=== PATIENT | female | born 1990 ===

== ENCOUNTER 2021-05-28 22:26 | Emergency (ER) | payer MEDICAID ==
[~2021-05-28] VITALS: Ht 157.5 cm; Wt 54.4 kg
--- NOTE | 2021-05-28 22:42 | NUR ---
Chloe c/o fever x 1 week. +body aches/+chills. Patient states she was seen in [facility] 05/14, dx with bronchitis , then once again on 05/22 with dx strep throat. States she is on ABX therapy but symptoms are continuing.
--- NOTE | 2021-05-28 22:58 | NUR ---
MARIKA CHILD at bedside for patient evaluation.
[2021-05-28] MEDS ORDERED: IV NS 1000 ML 1,000 ML IV ONE (23:15)
[2021-05-28] MEDS ORDERED: OXYCODONE/APAP 5-325 MG TABLET PO ONE (23:15)
[2021-05-28] MEDS ORDERED: OXYCODONE/APAP 5-325 MG TABLET ONE (23:23)
[2021-05-28 23:31] LABS: CREATININE 0.8 mg/dL (0.6-1.3); HEMATOCRIT 35.8 % (31.2-41.9); MEAN CORPUSCULAR HEMOGLOBIN 29.3 uug (24.7-32.8); MEAN CORPUSCULAR VOLUME 89.7 fL (75.5-95.3); PLATELET COUNT (AUTO) 321 K/uL (179-408); POTASSIUM 3.7 mmol/L (3.5-5.1)
[2021-05-28 23:47] LABS: BILIRUBIN,DIRECT 0.2 mg/dL (0.0-0.2); BILIRUBIN,TOTAL 0.5 mg/dL (0.2-1.0); TOTAL PROTEIN, SERUM 7.2 g/dL (6.4-8.2)
[2021-05-29 00:10] LABS: *MONOTEST NEGATIVE (NEGATIVE)
[2021-05-29] MEDS ORDERED: OXYC-128 PO (00:30)
[2021-05-29 00:33] VITALS: BP 111/62
--- NOTE | 2021-05-29 00:33 | NUR ---
Patient discharged to home in stable condition. Written and verbal after care instructions given. Patient verbalizes understanding of instructions. Stressed follow up or return to ER for worsening s/s. Ambulated from ER with stable gait. Will be driven home by taxi. PIV removed prior to d/c all belongings with patient.
== END 2021-05-29 00:34 | disposition home or self-care (01) ==
LOC: ER 22:33
DX: J03.90 Acute tonsillitis, unspecified (principal); R00.0 Tachycardia, unspecified
CPT/HCPCS: 85025; 86308; 86403; 86644; 86645; 87070; A4663; J7030